=== PATIENT | female | born 1965 | race Caucasian/White ===

== ENCOUNTER 2023-09-29 11:03 | Emergency (ER) | payer OTHER ==
[~2023-09-29] VITALS: Ht 157.5 cm; Wt 59.9 kg
[2023-09-29 11:17] VITALS: TEMP 98.7
[2023-09-29] MEDS: IV NS 0.9% 1,000 ML BAG IV ONE (11:45)
[2023-09-29] MEDS ORDERED: FAMOTIDINE/PF INJ 20 MG/2 ML VIAL IV ONE (11:48)
[2023-09-29] MEDS: FAMOTIDINE/PF INJ 20 MG/2 ML VIAL IV ONE (11:55)
[2023-09-29] MEDS ORDERED: EPIN0.3P3 IM (14:49)
[2023-09-29 15:12] VITALS: BP 115/68; O2SAT 98
== END 2023-09-29 15:11 | disposition home or self-care (01) ==
LOC: ER 11:05
DX: T78.2XXA Anaphylactic shock, unspecified, initial encounter (principal)
CPT/HCPCS: 99291; 96374; 96361; J3490; J7030